=== PATIENT | male | born 1980 | race Caucasian/White ===

== ENCOUNTER 2017-04-10 19:43 | Emergency (ER) | payer BC, OTHER ==
[2017-04-10 19:50] VITALS: BP 168/93
[2017-04-10] MEDS ORDERED: predniSONE TAB* 20 MG PO ONE (20:00)
--- NOTE | 2017-04-10 20:37 | UC ---
Skin Complaint HPI - HPI Summary HPI Summary: exposed to poison gabriella or possibly turnip--itching with blisters on forehead and near eyes---small blisters ---had similar the past 2 years as well, that went away with out treatment , - History of Current Complaint Chief Complaint: UCRash Time Seen by Provider: 04/10/17 19:52 Stated Complaint: RASH Hx Obtained From: Patient Onset/Duration: Sudden Onset, Lasting Days - 3, Still Present, Worse Since - daily Skin Exposure Onset/Duration: Days Ago Timing: Constant Onset Severity: Mild Current Severity: Moderate Location: Discrete - forehead Character: Hives, Redness, Raised Aggravating: Nothing Alleviating: Nothing Associated Signs & Symptoms: Positive: Rash Related History: Possible Reaction to: Environmental Exposure - Allergy/Home Medications Allergies/Adverse Reactions: Allergies Allergy/AdvReac Type Severity Reaction Status Date / Time No Known Allergies Allergy Verified 04/10/17 19:50 Review of Systems Constitutional: Negative Skin: Rash - on forehead Eyes: Negative ENT: Negative Respiratory: Negative Cardiovascular: Negative Gastrointestinal: Negative Genitourinary: Negative Motor: Negative Neurovascular: Negative Musculoskeletal: Negative Neurological: Negative Psychological: Negative All Other Systems Reviewed And Are Negative: Yes PMH/Surg Hx/FS Hx/Imm Hx Previously Healthy: Yes - Surgical History Surgical History: None - Family History Known Family History: Positive: None - Social History Occupation: Employed Full-time Lives: With Family Alcohol Use: Daily Substance Use Type: None Smoking Status (MU): Never Smoked Tobacco Physical Exam Triage Information Reviewed: Yes Appearance: Well-Appearing, No Pain Distress, Well-Nourished Vital Signs: Initial Vital Signs Temp 98.7 F 04/10/17 19:45 Pulse 82 04/10/17 19:45 Resp 20 04/10/17 19:45 BP 168/93 04/10/17 19:45 Pulse Ox 100 04/10/17 19:45 Vital Signs Reviewed: Yes Eye Exam: Normal Eyes: Positive: Conjunctiva Clear ENT Exam: Normal ENT: Positive: Normal ENT inspection, Hearing grossly normal. Negative: Nasal congestion, Nasal drainage, Trismus, Muffled/hoarse voice Dental Exam: Normal Neck exam: Normal Neck: Positive: Supple, Nontender Respiratory Exam: Normal Respiratory: Positive: Chest non-tender, No respiratory distress, No accessory muscle use Cardiovascular Exam: Normal Cardiovascular: Positive: RRR, Pulses Normal, Brisk Capillary Refill Musculoskeletal Exam: Normal Musculoskeletal: Positive: Strength Intact, ROM Intact, No Edema Neurological Exam: Normal Neurological: Positive: Alert, Muscle Tone Normal Psychological Exam: Normal Skin Exam: Other Skin: Positive: rashes - raised red with small vesicles Course/Dx - Course Course Of Treatment: prednisone and benadryl, mild soap and cool water wash, follow with pcp for elevated blood pressure - Differential Diagnoses - Skin Complaint Differential Diagnoses: Cellulitis, Contact Dermatitis, Impetigo, Local Allergic Reaction, Poison Gabriella, Poison [place] - Diagnoses Provider Diagnoses: Localized contact dermititis from unknown enviromental exposure, high blood pressure with out past dx of hypertension Discharge - Discharge Plan Condition: Stable Disposition: HOME Prescriptions: predniSONE TAB* [Deltasone TAB*] 10 mg PO DAILY #30 tab Patient Education Materials: Prednisone (By mouth), Diphenhydramine (By mouth) , Contact Dermatitis (ED), DASH Eating Plan (ED), Hypertension (ED), Cold Compress or Soak (ED) Referrals: [facility] [Outside] - 2 Weeks
== END 2017-04-10 20:21 | disposition home or self-care (01) ==
LOC: UCEAST 19:43
DX: L25.9 Unspecified contact dermatitis, unspecified cause (principal); R03.0 Elevated blood-pressure reading, without diagnosis of hypertension
CPT/HCPCS: 99212; G0463; J7512

== ENCOUNTER 2017-10-30 07:08 | Emergency (ER) | payer OTHER ==
[2017-10-30 07:24] VITALS: BP 142/102
--- NOTE | 2017-10-30 07:37 | UC ---
Skin Complaint HPI - HPI Summary HPI Summary: 37 year old male here with tick bite he noticed this morning. 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 His tried to remove it this morning but unable to remove all of it. No other complaints. - History of Current Complaint Chief Complaint: UCSkin Time Seen by Provider: 10/30/17 07:15 Stated Complaint: TICK BITE Hx Obtained From: Patient Onset/Duration: Sudden Onset Skin Exposure Onset/Duration: Minutes Ago Current Severity: None Pain Intensity: 0 Aggravating Factor(s): Nothing Alleviating Factor(s): Nothing Associated Signs & Symptoms: Positive: Negative Related History: Insect Bite/Sting - Allergy/Home Medications Allergies/Adverse Reactions: Allergies Allergy/AdvReac Type Severity Reaction Status Date / Time No Known Allergies Allergy Verified 10/30/17 07:24 Home Medications: Home Medications NK [No Home Medications Reported] 10/30/17 [History Confirmed 10/30/17] Review of Systems Constitutional: Negative Skin: Negative Eyes: Negative ENT: Negative Respiratory: Negative Cardiovascular: Negative Gastrointestinal: Negative Genitourinary: Negative Motor: Negative Neurovascular: Negative Musculoskeletal: Negative Neurological: Negative Psychological: Negative All Other Systems Reviewed And Are Negative: Yes PMH/Surg Hx/FS Hx/Imm Hx Previously Healthy: No - Surgical History Surgical History: None - Family History Known Family History: Positive: None - Social History Alcohol Use: Daily Alcohol Amount: couple of beers Substance Use Type: None Smoking Status (MU): Never Smoked Tobacco Physical Exam Triage Information Reviewed: Yes Appearance: Well-Appearing, No Pain Distress, Well-Nourished Vital Signs: Initial Vital Signs Temp 36.4 C 10/30/17 07:20 Pulse 76 10/30/17 07:20 Resp 16 10/30/17 07:20 BP 142/102 10/30/17 07:20 Pulse Ox 99 10/30/17 07:20 Vital Signs Reviewed: Yes ENT Exam: Normal Musculoskeletal Exam: Normal Psychological Exam: Normal Skin: Positive: Other - Right arm with visualized with small tick piece embedded in the skin No surrounding erythema Re-Evaluation - Re-Evaluation First Eval Re-Evaluation Time: 07:30 - Tick removed with forcep. Area cleaned and irrigated. Course/Dx - Differential Diagnoses - Skin Complaint Differential Diagnoses: Cellulitis, Tick Born Illness, Other - Diagnoses Provider Diagnoses: Tick bite. Removed here with forcep. Return precautions given (redness around the area or any other concerning symptoms) Discharge - Discharge Plan Condition: Good Disposition: HOME Patient Education Materials: Tick Bite (ED) Forms: *Work Release Referrals: Sage Alberto MD [Primary Care Provider] -
== END 2017-10-30 07:42 | disposition home or self-care (01) ==
LOC: UCEAST 07:08
DX: S40.861A Insect bite (nonvenomous) of right upper arm, initial encounter (principal); W57.XXXA Bitten or stung by nonvenomous insect and other nonvenomous arthropods, initial encounter; Y93.9 Activity, unspecified; Y92.9 Unspecified place or not applicable
CPT/HCPCS: 99211; G0463